=== PATIENT | female | born 1970 | race Caucasian/White ===

== ENCOUNTER 2020-06-20 07:13 | Outpatient (CLI) | payer OTHER, SELFPAY ==
--- NOTE | 2020-06-20 07:18 | MM_ITS ---
WS: [id number] BILATERAL SCREENING DIGITAL MAMMOGRAM WITH CAD HISTORY: SCREENING COMPARISON: 04/16/2019 Bilateral CC and MLO views submitted. Computer aided detection analyzed. Breast composition: The breasts are extremely dense, which lowers the sensitivity of mammography. No suspicious masses, microcalcifications or architectural distortion. Benign calcifications and multipl e asymmetries. No architectural distortion. MM/[place] [id number] IMPRESSION: BI-RADS: 2-Benign FOLLOW UP: 1 Year Follow-up
== END 2020-06-20 07:14 | disposition home or self-care (01) ==
LOC: RADSHAW 07:15
PROVIDERS: Visit Provider Nurse Practitioner Family
DX: Z12.31 Encounter for screening mammogram for malignant neoplasm of breast (principal)
CPT/HCPCS: 77067

== ENCOUNTER → 2021-04-21 12:03 | Outpatient (BNVA) | payer OTHER, SELFPAY | PROVIDERS: PCP Family Medicine Adult Medicine; Visit Provider Nurse Practitioner Family | DX: Z20.822 Contact with and (suspected) exposure to COVID-19 (principal) | CPT/HCPCS: 87635 ==

== ENCOUNTER 2021-06-20 08:48 | Outpatient (CLI) | payer OTHER, SELFPAY ==
--- NOTE | 2021-06-20 08:59 | MM_ITS ---
WS: [id number] BILATERAL DIGITAL SCREENING MAMMOGRAM WITH CAD CLINICAL INFORMATION: SCREENING HISTORY: Screening mammogram. Left breast soreness COMPARISON: June 20, 2020 TECHNIQUE: Bilateral CC and MLO. FINDINGS: The breast are composed of extremely dense tissue, which can limit the detection of small underlying mass lesions. Prior postoperative changes lumpectomy 12:00 position left breast Vascular calcification. Stable cely gn punctate calcifications. No suspicious focal mass, asymmetry, calcifications, or architectural dis tortion. No evidence of malignancy. MM/[id number] IMPRESSION: BI-RADS: 2-Benign FOLLOW UP: 1 Year Follow-up Recommend return to annual screening mammography.
== END 2021-06-20 08:49 | disposition home or self-care (01) ==
PROVIDERS: PCP Family Medicine Adult Medicine; Visit Provider Nurse Practitioner Family
DX: Z12.31 Encounter for screening mammogram for malignant neoplasm of breast (principal)
CPT/HCPCS: 77067

== ENCOUNTER → 2021-09-26 12:11 | Outpatient (BNVA) | payer MEDICAID, SELFPAY | PROVIDERS: PCP Family Medicine Adult Medicine; Visit Provider Family Medicine Adult Medicine | DX: Z00.00 Encounter for general adult medical examination without abnormal findings (principal) | CPT/HCPCS: 80053; 80061; 83036; 84443; 85025 ==

== ENCOUNTER 2022-01-16 12:26 | Outpatient (CLI) | payer MEDICAID, SELFPAY ==
--- NOTE | 2022-01-16 13:00 | XR_ITS ---
WS: [id number] DEXA (DUAL ENERGY X-RAY ABSORPTIOMETRY) Bone mineral density was performed using a SETiT machine. HISTORY: Bone density screen COMPARISON: None available. Lumbar spine BMD (L1-L4): 1.073 g/cm2 T score: -0.9 Z score: 0.1 Total hip BMD: Left: 0.858 g/cm2. T score: -1.2 Z score: -0.4 Right: 0.881 g/cm2. T score: -1.0 Z score: -0.2 10 year probability of a major osteoporotic fracture is 4.7%. XR/XR DEXA axial skeleton* [id number] IMPRESSION: OSTEOPENIA based upon the WHO classification for females.
== END 2022-01-16 12:27 | disposition home or self-care (01) ==
LOC: RAD 12:30
PROVIDERS: PCP Family Medicine Adult Medicine; Visit Provider Family Medicine Adult Medicine
DX: Z00.00 Encounter for general adult medical examination without abnormal findings (principal); M85.80 Other specified disorders of bone density and structure, unspecified site
CPT/HCPCS: 77080

== ENCOUNTER → 2022-04-17 11:07 | Outpatient (BNVA) | payer MEDICAID, SELFPAY | PROVIDERS: PCP Family Medicine Adult Medicine; Visit Provider Obstetrics & Gynecology | DX: Z12.4 Encounter for screening for malignant neoplasm of cervix (principal); Z12.11 Encounter for screening for malignant neoplasm of colon | CPT/HCPCS: 87624 ==

== ENCOUNTER 2022-06-25 07:51 | Outpatient (CLI) | payer MEDICAID, SELFPAY ==
--- NOTE | 2022-06-25 07:59 | MM_ITS ---
WS: [id number] BILATERAL SCREENING DIGITAL TOMOSYNTHESIS MAMMOGRAM WITH CAD HISTORY: Screening. COMPARISON: 06/20/2021, 06/20/2020 Bilateral CC and MLO views with tomosynthesis and synthetic mammography submitted. Computer aided det ection analyzed. Breast composition: The breasts are extremely dense, which lowers the sensitivity of mammography. No suspicious masses, microcalcifications or architectural distortion. Breast arterial calcifications. MM/[place] [id number] IMPRESSION: BI-RADS: 2-Benign FOLLOW UP: 1 Year Follow-up
== END 2022-06-25 07:52 | disposition home or self-care (01) ==
LOC: RAD 07:52
PROVIDERS: PCP Family Medicine Adult Medicine; Visit Provider Family Medicine Adult Medicine
DX: Z12.31 Encounter for screening mammogram for malignant neoplasm of breast (principal)
CPT/HCPCS: 77063; 77067

== ENCOUNTER 2022-07-12 07:02 | Day surgery (SDC) | payer MEDICAID, SELFPAY ==
[2022-07-10 13:39] VITALS: BMI 18.6
[2022-07-12 07:25] VITALS: BP 105/70; PULSE 543; RESP 18; TEMP 36.6; O2SAT 100
[2022-07-12] MEDS: sodium chloride 0.9% 1,000 ML 30 ML IV (07:30)
--- NOTE | 2022-07-12 07:53 | ANES.PREANE2 ---
Pre-Anesthetic Assessment Height/Weight: Height 1.68 m Weight 52.163 kg Temp Pulse Resp BP Pulse Ox O2 Del Method 97.8 F 543 H 18 105/70 100 07/12/22 07:25 07/12/22 07:25 07/12/22 07:25 07/12/22 07:25 07/12/22 07:25 07/12/22 07:25 Operation Date: 07/12/22 08:30 Proposed Procedures p Colonoscopy 75859,Z12.11(Not Applicable) - Roney Castañeda MD Familial anesthetic complications: None Was Beta Franchesca taken within 24 hours: N/A Was Clonidine taken within 24 hours: N/A Last intake: Intake Last Liquid Date 07/11/22 Last Liquid Time 21:30 Last Solid Date 07/10/22 Last Solid Time 19:00 Social Alcohol (4 beers a night) and No tobacco Exam alert, oriented x 3, clear to auscultation bilaterally and regular rate & rhythm Airway Mallampati: Class I Dentition: full Anesthetic Plan ASA status: 2 Anesthesia: MAC Risk of > 500 ml blood loss (7ml/kg in children): No Medications/Allergies Home Medications Medication Instructions Recorded Confirmed Last Taken Type ascorbate calcium (vitamin C) 1 tab PO DAILY 01/26/21 07/10/22 07/10/22 History multivitamin 1 tab PO DAILY 01/26/21 07/10/22 07/10/22 History stool softner 1 tab PO DAILY PRN bowel movements 01/26/21 07/10/22 07/10/22 History Saccharomyces boulardii [Daily 1 tab PO DAILY 09/26/21 07/10/22 07/10/22 History Probiotic (S. boulardii)] vitamin B complex (B 1 tab PO DAILY 03/27/22 07/10/22 07/10/22 History Complex-Vitamin B12 tablet) peg 3350-electrolytes 236 240 ml PO Q10M #4,000 mL 05/03/22 07/12/22 07/11/22 Rx gram-22.74 gram-6.74 gram-5.86 gram solution (Golytely) Allergies Allergy/AdvReac Type Severity Reaction Status Date / Time No Known Allergies Allergy Verified 07/12/22 07:17 Current Medications Generic Name Dose Route Start Last Admin Trade Name Freq PRN Reason Stop Dose Admin Sodium Chloride 1,000 mls @ 30 mls/hr 07/12/22 07:15 07/12/22 07:30 Sodium Chloride 0.9% IV 07/13/22 07:14 30 mls/hr .Q24H GALINA Administration PFSH Anesthesia Medical History Anxiety about health Medicare annual wellness visit, initial Psoriasis annularis Tinea corporis Surgical History (Updated 04/17/22 @ 10:58 by Sana Katz RN) Hx of lumpectomy Family History (Updated 04/17/22 @ 10:59 by Sana Katz RN) Other Family history unknown Social History (Updated 04/17/22 @ 10:58 by Sana Katz, MAVERICK) Smoking and tobacco status: former smoker (quit in 2013) Data Anesthesia Cardiac Studies: No Data to Display
--- NOTE | 2022-07-12 08:41 | P.HP_ITS ---
Same Day Surgery H&P Indication for Procedure/HPI DATE OF PROCEDURE: July 12, 2022 CHIEF COMPLAINT/INDICATIONFOR SURGICAL PROCEDURE: Screening colonoscopy PREOP DIAGNOSIS: Screening colonoscopy PLANNED PROCEDURE: Operation Date: 07/12/22 08:30 Proposed Procedures p Colonoscopy 71707,Z12.11(Not Applicable) - Roney Castañeda MD This is a pleasant 52 years old female patient referred to my practice for screening colonoscopy. Denies any bleeding per rectum or history of colon cancer change in bowel habits or change in caliber of bowel movement. Never had a colonoscopy before. Patient is adopted and she does not recall any family history of colon cancer in particular. ROS All systems have been reviewed negative except as for the above or per problem list. Medications/Allergies* Home Medications Medication Instructions Recorded Confirmed Type ascorbate calcium (vitamin C) 1 tab PO DAILY 01/26/21 07/10/22 History multivitamin 1 tab PO DAILY 01/26/21 07/10/22 History stool softner 1 tab PO DAILY PRN bowel movements 01/26/21 07/10/22 History Saccharomyces boulardii [Daily 1 tab PO DAILY 09/26/21 07/10/22 History Probiotic (S. boulardii)] vitamin B complex (B 1 tab PO DAILY 03/27/22 07/10/22 History Complex-Vitamin B12 tablet) Allergies/Adverse Reactions Allergy/AdvReac Type Severity Reaction Status Date / Time No Known Allergies Allergy Verified 07/12/22 08:41 Current Medications: Generic Name Dose Route Start Last Admin Trade Name Freq PRN Reason Stop Dose Admin Sodium Chloride 1,000 mls @ 30 mls/hr 07/12/22 07:15 07/12/22 07:30 Sodium Chloride 0.9% IV 07/13/22 07:14 30 mls/hr .Q24H GALINA Administration Pertinent History/Comorbid Conditions* Medical History (Updated 11/28/21 @ 09:07 by Jonathan Marie MD) Anxiety about health Medicare annual wellness visit, initial Psoriasis annularis Tinea corporis Surgical History (Updated 01/26/21 @ 08:32 by Jonathan Marie MD) Hx of lumpectomy Family History (Updated 04/17/22 @ 10:59 by Sana Katz RN) Family history unknown Social History Smoking and tobacco status: former smoker (quit in 2013) Pertinent Exam Findings alert, oriented x 3, clear to auscultation bilaterally, regular rate & rhythm and procedure specific exam findings (Abdominal exam nontender nondistended soft) Recommendations Surgery/Procedure today (Colonoscopy with possible biopsy) Other Plans: Plan of care; After thorough history and physical examination and reviewing the chart, plan to perform screening colonoscopy. I discussed with the patient in details the risks,benefits,alternatives and indications.The risk of aspiration, bleeding, soft tissue injury, perforation of the colon ,missed lesions and other potential concomitant complications were explained to the patient in details,also the potential need for Laproscoy/Laparotomy to repair any related complications including but not limited to colectomy and or Closotomy.The patient understood this well and did agree to proceed. Rationale was carefully and clearly discussed with the patient.Appropriate informed consent have been reviewed and signed All questions have been answered and all concerns have been addressed to patient's satisfaction. 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
[2022-07-12 09:17] VITALS: BP 95/60; PULSE 14; RESP 22; TEMP 36.7; O2SAT 100
--- NOTE | 2022-07-12 09:27 | ANE.PACU2 ---
Inpatient post-anesthesia follow up: Airway intact: Yes Vital signs: Temperature 98.1 F Pulse Rate 14 Respiratory Rate 22 Blood Pressure 95/60 Pulse Oximetry 100 Oxygen Delivery Me thod Room Air Oxygen Flow Rate Fraction of Inspir ed Oxygen Hydration adequate: Yes Nausea and vomiting: No Pain level: 1 Mental status: Baseline
[2022-07-12 09:30] VITALS: BP 97/57; PULSE 18; RESP 20; O2SAT 99
== END 2022-07-12 09:45 | disposition home or self-care (01) ==
PROVIDERS: PCP Family Medicine Adult Medicine; Visit Provider Surgery
PROC: 0DJD8ZZ Inspection of Lower Intestinal Tract, Via Natural or Artificial Opening Endoscopic (ICD-10-PCS; CPT 45378; principal; 2022-07-12 08:30)
DX: Z12.11 Encounter for screening for malignant neoplasm of colon (principal); Z87.891 Personal history of nicotine dependence
CPT/HCPCS: 45378; J2704; J7030

== ENCOUNTER → 2023-01-22 08:56 | Outpatient (BNVA) | payer MEDICAID, SELFPAY | PROVIDERS: PCP Family Medicine Adult Medicine; Visit Provider Nurse Practitioner Family | DX: R39.9 Unspecified symptoms and signs involving the genitourinary system (principal) | CPT/HCPCS: 81000 ==

== ENCOUNTER 2023-07-03 09:51 | Outpatient (CLI) | payer MEDICAID, SELFPAY ==
--- NOTE | 2023-07-03 10:04 | MM_ITS ---
WS: [id number] Bilateral screening 3D tomosynthesis digital mammogram, 07/03/2023 Clinical Data: SCREENING Comparison: 06/25/2022, 06/20/2021, 06/20/2020, 04/16/2019, 03/25/2018, 03/11/2018, 02/27/2018, 01/18/2017, 02/15/2016, 02/07/2015, 01/01/2014. Findings: The breast parenchymal pattern shows extreme density. No spiculated masses or clustered calcification s are seen. There are no secondary signs of carcinoma. Impression: 1. Negative bilateral mammogram unchanged. 2. Recommend annual screening mammograms. MM/[place] [id number] BIRADS: 1-Negative FOLLOW UP: 1 Year Follow-up The CAD coloring checker was used.
== END 2023-07-03 09:52 | disposition home or self-care (01) ==
LOC: RAD 09:51
PROVIDERS: PCP Family Medicine Adult Medicine; Visit Provider Family Medicine Adult Medicine
DX: Z12.31 Encounter for screening mammogram for malignant neoplasm of breast (principal)
CPT/HCPCS: 77063; 77067

== ENCOUNTER → 2024-06-18 10:47 | Outpatient (BNVA) | payer MEDICAID, SELFPAY | PROVIDERS: PCP Family Medicine Adult Medicine; Visit Provider Obstetrics & Gynecology | DX: Z01.419 Encounter for gynecological examination (general) (routine) without abnormal findings (principal) | CPT/HCPCS: 84443 ==

== ENCOUNTER 2024-07-06 09:11 | Outpatient (CLI) | payer MEDICAID, SELFPAY ==
--- NOTE | 2024-07-06 09:13 | MM_ITS ---
WS: [id number] BILATERAL SCREENING DIGITAL TOMOSYNTHESIS MAMMOGRAM WITH CAD HISTORY: SCREENING COMPARISON: 07/03/2023, 06/25/2022 Bilateral CC and MLO views with tomosynthesis and synthetic mammography submitted. Computer aided det ection analyzed. Breast composition: The breasts are extremely dense, which lowers the sensitivity of mammography. No suspicious masses, microcalcifications or architectural distortion. Extensive bilateral calcification s. Scattered asymmetries within each breast. MM/MM scr tomosynthesis [id number] IMPRESSION: BI-RADS: 2 - Benign FOLLOW UP: 1 Year Follow-up
== END 2024-07-06 09:12 | disposition home or self-care (01) ==
PROVIDERS: PCP Family Medicine Adult Medicine; Visit Provider Family Medicine Adult Medicine
DX: Z12.31 Encounter for screening mammogram for malignant neoplasm of breast (principal)
CPT/HCPCS: 77063; 77067

== ENCOUNTER 2025-07-07 07:52 | Outpatient (CLI) | payer MEDICAID, SELFPAY ==
--- NOTE | 2025-07-07 07:59 | MM_ITS ---
WS: [id number] BILATERAL SCREENING DIGITAL TOMOSYNTHESIS MAMMOGRAM WITH CAD HISTORY: SCREENING COMPARISON: 07/06/2024, 07/03/2023, 06/25/2022, 06/20/2020 Bilateral CC and MLO views with tomosynthesis and synthetic mammography submitted. Computer aided detection analyzed. Breast composition: The breasts are extremely dense, which lowers the sensitivity of mammography. No suspicious masses, microcalcifications or architectural distortion. Bilateral moderate arterial calcifications in each breast. No areas of distortion. Similar parenchymal pattern as compared to prior studies. MM/MM [facility] tomosynthesis [id number] IMPRESSION: BI-RADS: 2 - Benign FOLLOW UP: 1 Year Follow-up
== END 2025-07-07 07:53 | disposition home or self-care (01) ==
LOC: RAD 07:54
PROVIDERS: PCP Family Medicine; Visit Provider Family Medicine
DX: Z12.31 Encounter for screening mammogram for malignant neoplasm of breast (principal); R92.313 Mammographic fatty tissue density, bilateral breasts; R92.1 Mammographic calcification found on diagnostic imaging of breast
CPT/HCPCS: 77063; 77067